=== PATIENT | male | born 1960 | race Caucasian/White ===

== ENCOUNTER 2020-10-13 09:19 | Inpatient (IN) ==
--- NOTE | 2020-09-09 14:06 | PAT Medication Instructions ---
Medication Instructions Date of Service September 09, 2020 Home Medications Medication Instructions Recorded sodium,potassium,mag sulfates 17.5 177 ml PO DAILY #354 ml 01/09/19 gram-3.13 gram-1.6 gram oral soln aspirin 81 mg PO HS fenofibrate nanocrystallized 145 mg PO QPM multivitamin 1 tab PO QAM omeprazole 40 mg PO DAILY PRN rosuvastatin 20 mg PO QPM sodium,potassium,mag sulfates 17.5 gram-3.13 gram-1.6 gram oral soln 177 ml PO DAILY ibuprofen 400 mg PO Q6H PRN venlafaxine [Effexor] 75 mg PO QAM ASK your surgeon for instructions ibuprofen 400 mg PO Q6H PRN STOP taking 48 hours before surgery fenofibrate nanocrystallized 145 mg PO QPM DO NOT take the morning of surgery multivitamin 1 tab PO QAM sodium,potassium,mag sulfates 17.5 gram-3.13 gram-1.6 gram oral soln 177 ml PO DAILY Take morning of surgery With a small sip of water, OTHERWISE NOTHING TO EAT OR DRINK AFTER MIDNIGHT: omeprazole 40 mg PO DAILY PRN (if needed) venlafaxine [Effexor] 75 mg PO QAM Take evening before surgery aspirin 81 mg PO HS omeprazole 40 mg PO DAILY PRN (if needed) rosuvastatin 20 mg PO QPM Other Notes If you have any questions please call us at [phone] or [phone] or [phone] or [phone]
--- NOTE | 2020-09-13 11:50 | Anesthesiology Consultation ---
Date of Service September 13, 2020 Assessment & Plan (1) Encounter for pre-operative examination: - Thrombocytopenia: appears chronic with baseline 80s-low 100's per chart urby delgado. Surgeon's office made aware. Awaiting response from PCP regarding thrombocytopenia. - COVID screening: Per assessment on 09/13: Travel screen negative, no known COVID-19 positive contacts or current COVID-19 related symptoms. Patient fully vaccinated. Surgeon arranging preop COVID testing (scheduled 10/07; [facility]). Awaiting results. - ETOH use: 6-9 beers after finishing working (late afternoon/night), rare morning ETOH use* Chart Review Chart Review: Patient seen in Pre Admission Testing Teaching & Discussion Pre-Anesthesia Teaching/Discussion Notes: Instructed NPO after midnight before surgery,except medications with 15 cc of water. Medication instructions provided according to the PAT guidelines. History Surgery Operation Date: 10/13/20 09:00 Proposed Procedures p Right Total Knee Arthroplasty - Hermes Jacques MD Height/Weight Height: 5 ft 6 in Weight: 90.4 kg Allergies Allergy/AdvReac Type Severity Reaction Status Date / Time No Known Allergies Allergy Verified 09/09/20 13:23 Medications Home Medications Medication Instructions Recorded Confirmed Last Taken aspirin 81 mg PO HS 01/09/19 09/09/20 01/09/19 fenofibrate nanocrystallized 145 mg PO QPM 01/09/19 09/09/20 01/09/19 multivitamin 1 tab PO QAM 01/09/19 09/09/20 12/26/18 omeprazole 40 mg PO DAILY PRN 01/09/19 09/09/20 01/09/19 rosuvastatin 20 mg PO QPM 01/09/19 09/09/20 01/09/19 sodium,potassium,mag sulfates 17.5 177 ml PO DAILY #354 ml 01/09/19 09/09/20 01/12/19 gram-3.13 gram-1.6 gram oral soln ibuprofen 400 mg PO Q6H PRN 09/09/20 09/09/20 Unknown venlafaxine [Effexor] 75 mg PO QAM 09/09/20 09/09/20 Unknown Past Medical History Medical History (Updated 09/13/20 @ 14:58 by Bridgette Lara) Chronic back pain GERD (gastroesophageal reflux disease) controlled [place] (hard of hearing) Hyperlipidemia Obesity Thrombocytopenia Chronic, baseline platelets 80s-low 100s Exercise / Class Metabolic Activity II 4-5 Yardwork/Stairs/Walk up hill (one flight of stairs (no chest pain/no sob)) Past Family History Family History Father Family history of diabetes mellitus Mother Family history of diabetes mellitus Past Surgical History Surgical History History of arthroscopy of both shoulders History of colonoscopy Colonoscopy (01/12/19): MAC sedation at [facility] Past Anesthesia History No Hx of Anesthesia Complications and No Family Hx of Anesthesia Complications History of PONV No Hx of PONV and No Hx of Motion Sickness Social History Smoking Status: Former smoker tobacco type: cigarettes Do You Dip or Chew Tobacco: No Smoking End Date: Quit in ' Hx Alcohol Use: Yes Alcohol type: beer alcohol intake frequency: 3 or more drinks per day (6-9 beers after finishing working (late afternoon/night), rare morning ETOH use) Hx Substance Use: No substance use type: does not use Review of Systems Patient denies chest pain, shortness of breath, dyspnea on exertion, fever, chills, cough, wheezing, palpitations. Physical Exam Vital Signs VITALS BP 132/80 P 88 TEMP 98.3 SP02 96%RA RESP 16 PHYSICAL Full cervical extension range of motion. Full TMJ range of motion. TMD 3 finger breaths Mallampati Score 2 Dentition: intact Lungs: clear throughout to auscultation Cardiac: regular rate and rhythm, no murmurs noted Spine: normal Carotid arteries: negative bruit Extremities: no edema Testing Laboratory Results 09/13/20 12:09 09/13/20 12:09 PT 11.5 Seconds (9.0-12.0) 09/13/20 12:09 INR 1.1 (0.9-1.1) 09/13/20 12:09 APTT 26.8 Seconds (21.0-31.0) 09/13/20 12:09 Urine Color Yellow 09/13/20 Unknown Urine Appearance Clear (Clear) 09/13/20 Unknown Urine pH 7.0 (4.5-7.5) 09/13/20 Unknown Ur Specific [place] 1.034 (1.000-1.030) H 09/13/20 Unknown Urine Protein Negative (Negative) 09/13/20 Unknown Urine Glucose (UA) 3+ (Negative) H 09/13/20 Unknown Urine Ketones Negative (Negative) 09/13/20 Unknown Urine Nitrite Negative (Negative) 09/13/20 Unknown Ur Leukocyte Esterase Negative (Negative) 09/13/20 Unknown Blood Type O Positive 09/13/20 12:09 Antibody Screen NEGATIVE 09/13/20 12:09 Low WBC, thrombocytopenia > preop testing to be forwarded to PCP* Electrocardiogram Date: 09/13/20 NSR at 72bpm. Normal ECG. unconfirmed report. Chest X-Ray Date: 09/13/20 Findings: + NAD
--- NOTE | 2020-09-13 13:00 | XRay Report ---
XR chest Pre-admission PA/Lat HISTORY: 60 years-old Male pat chronic degenerative joint disease COMPARISON: None TECHNIQUE: PA and lateral views of the chest FINDINGS: Cardiomediastinal and hilar silhouettes are within normal limits. No pneumothorax, pleural effusion, airspace consolidation or overt pulmonary edema. Bones of the chest appear grossly intact. IMPRESSION: No acute process. ACT 112: Negative or not required by law. The above report was generated using voice recognition software. It may contain grammatical, syntax o r spelling errors. Electronically signed by: Quinton Holland M.D. 09/13/2020 12:59 PM
[2020-09-13 13:56] LABS: Hematocrit (blood only) 44.6 % (42-52); Hemoglobin 15.7 g/dL (14.0-18.0); Mean Corpuscular Hemoglobin 34.2 pg (25-34); Mean Corpuscular Hgb Conc 35.2 g/dL (32-36); Mean Corpuscular Volume 97.2 fL (80-100); Mean Platelet Volume 11.8 fL (7.4-10.4); Platelet Count 77 K/uL (130-400); RDW Coefficient of Variation 12.6 % (11.5-14.5); RDW Standard Deviation 45.2 fL (36.4-46.3); Red Blood Count 4.59 M/uL (4.7-6.1); White Blood Count 3.59 K/uL (4.8-10.8)
[2020-09-13 13:58] LABS: INR 1.1 (0.9-1.1); Partial Thromboplastin Time 26.8 Seconds (21.0-31.0); Prothrombin Time 11.5 Seconds (9.0-12.0)
[2020-09-13 14:11] LABS: Eosinophils # (auto) 0.04 K/uL (0-0.5); Eosinophils % (auto) 1.1 %; Lymphocytes # (auto) 0.97 K/uL (1.2-3.4); Monocytes # (auto) 0.39 K/uL (0.11-0.59); Monocytes % (auto) 10.9 %; Neutrophils # (auto) 2.19 K/uL (1.4-6.5); Platelet Estimate Decreased (Normal)
[2020-09-13 14:18] LABS: Appearance Urine Clear (Clear); Bilirubin Urine Negative (Negative); Blood Urine Negative (Negative); Color Urine Yellow; Glucose Urine UA 3+ (Negative); Ketones Urine Negative (Negative); Leukocyte Esterase Urine Negative (Negative); Nitrite Urine Negative (Negative); Protein Urine Negative (Negative); Specific Gravity Urine 1.034 (1.000-1.030); Urobilinogen Urine Negative (Negative)
[2020-09-13 15:00] LABS: Albumin Level 3.9 gm/dl (3.4-5.0); BUN Creatinine Ratio 16.4 (10-20); Calcium 10.1 mg/dl (8.5-10.1); Creatinine Clr Calc Pharmacy 102.1 ml/min; Est GFR (Non-African American) 96.6; Potassium 4.3 mmol/L (3.5-5.1)
--- NOTE | 2020-09-14 06:41 | Electrocardiogram Report ---
Test Reason : Blood Pressure : / mmHG Vent. Rate : 072 BPM Atrial Rate : 072 BPM P-R Int : 150 ms QRS Dur : 098 ms QT Int : 436 ms P-R-T Axes : 071 052 049 degrees QTc Int : 477 ms Normal sinus rhythm Normal ECG No previous ECGs available Confirmed by Simon Capps ([id number]) on 09/14/2020 6:41:11 AM Referred By: Hermes Jacques Confirmed By:Simon Capps
[2020-09-14 07:05] LABS: Estimated Average Glucose 180 mg/dl; Hemoglobin A1C 7.9 % (4.5-5.6)
--- NOTE | 2020-10-11 21:44 | History & Physical Report ---
Date of Service October 11, 2020 Assessment & Plan (1) Primary osteoarthritis of right knee: Treatment options discussed with patient. He has failed conservative measures as above and would like to proceed with surgical intervention. Risks, benefits and alternatives to surgery including but not limited to infection, DVT, pain, stiffness, need for revision surgery, damage to blood vessels, damage to nerves, PE, , were discussed with the patient and they wish to proceed. Plan for right total knee arthroplasty at [facility] on 10/13/[address] Jacques. Will plan on aspirin 81mg BID for DVT prophylaxis, as well as HHPT post discharge. All questions answered. F/u post operatively. History of Present Illness Chief Complaint: right knee pain Primary Care Provider: Farshad Murray 60 year old male with PMHx significant for high cholesterol, GERD, anxiety, thrombocytopenia, and daily alcohol use, who presents with worsening right knee pain. He is unable to carry out his normal work activities or daily activities due to pain in knee. He has failed conservative measures including anti- inflammatories, injections, bracing. He would like to proceed with surgical intervention. Patient denies headaches, sweats, fevers, chills, double vision, blurred vision, cough, sore throat, dysphagia, chest pain, sob, wheezing, n/v/d/c, numbness, tingling, fatigue, urinary symptoms, mood disorders. ROS positive for right knee pain and stiffness. Allergies Allergy/AdvReac Type Severity Reaction Status Date / Time No Known Allergies Allergy Verified 09/09/20 13:23 Home Medications Medication Instructions Recorded Confirmed Type aspirin 81 mg PO HS 01/09/19 09/09/20 History fenofibrate nanocrystallized 145 mg PO QPM 01/09/19 09/09/20 History multivitamin 1 tab PO QAM 01/09/19 09/09/20 History omeprazole 40 mg PO DAILY PRN 01/09/19 09/09/20 History rosuvastatin 20 mg PO QPM 01/09/19 09/09/20 History sodium,potassium,mag sulfates 17.5 177 ml PO DAILY #354 ml 01/09/19 09/09/20 Rx gram-3.13 gram-1.6 gram oral soln ibuprofen 400 mg PO Q6H PRN 09/09/20 09/09/20 History venlafaxine [Effexor] 75 mg PO QAM 09/09/20 09/09/20 History metformin 500 mg PO BID 10/05/20 10/05/20 History Past Med/Surg History Medical History (Updated 10/11/20 @ 21:35 by Evangelist Tan) Chronic back pain GERD (gastroesophageal reflux disease) controlled [place] (hard of hearing) Hyperlipidemia Obesity Thrombocytopenia Chronic, baseline platelets 80s-low 100s Surgical History History of arthroscopy of both shoulders History of colonoscopy Colonoscopy (01/12/19): MAC sedation at [facility] Family History Father Family history of diabetes mellitus Mother Family history of diabetes mellitus Social History Smoking Status: Former smoker Second Hand Exposure: Yes (FATHER SMOKED); Hx Alcohol Use: Yes Alcohol type: beer Hx Substance Use: No Preferred Language: Ethiopian Communication Ability: Effective Developer Prover Upholstering Required: No Beliefs That Will Affect Care: None Current Living Situation: Spouse Feels Safe at Home: Yes Assistive Devices: None Review of Systems All systems reviewed & are unremarkable except as noted in HPI & below Physical Exam Constitutional: well developed and well nourished; no acute distress Eyes: PERRL, conjunctivae normal, anicteric sclerae ENMT: external ear and nose normal, oropharynx normal Neck: trachea midline, no thyromegaly Respiratory: normal respiratory effort, lungs clear to auscultation Cardiovascular: RRR, no murmur, no edema Musculoskeletal: Right knee: Mild to moderate effusion. Tenderness lateral joint line, lateral femoral condyle, medial joint line. Mild crepitation. Positive Franci's. Stable to valgus and varus stress. ROM 0-115 degrees. Skin: no rashes, warm and dry Neurologic: patellar DTR's 2+ bilat, sensation intact Psychiatric: A+Ox3, euthymic affect Results & Data ([facility]) Laboratory Results Lab Results 09/13/20 09/13/20 09/13/20 Range/Units 12:09 12:09 12:09 WBC 3.59 L (4.8-10.8) K/uL RBC 4.59 L (4.7-6.1) M/uL Hgb 15.7 (14.0-18.0) g/dL Hct 44.6 (42-52) % MCV 97.2 (80-100) fL MCH 34.2 H (25-34) pg MCHC 35.2 (32-36) g/dL RDW Std Deviation 45.2 (36.4-46.3) fL RDW Coeff of Cheryle 12.6 (11.5-14.5) % Plt Count 77 L (130-400) K/uL MPV 11.8 H (7.4-10.4) fL Immature Gran % (Auto) 0.0 % Neut % (Auto) 61.0 % Lymph % (Auto) 27.0 % [place] % (Auto) 10.9 % Eos % (Auto) 1.1 % Baso % (Auto) 0.0 % Neut # (Auto) 2.19 (1.4-6.5) K/uL Lymph # (Auto) 0.97 L (1.2-3.4) K/uL Henderson # (Auto) 0.39 (0.11-0.59) K/uL Eos # (Auto) 0.04 (0-0.5) K/uL Baso # (Auto) 0.00 (0-0.2) K/uL Immature Gran # (Auto) 0.00 (0.00-0.02) K/uL Platelet Estimate Decreased L (Normal) PT 11.5 (9.0-12.0) Seconds INR 1.1 (0.9-1.1) APTT 26.8 (21.0-31.0) Seconds PTT Ratio 1.0 Sodium (136-145) mmol/L Potassium (3.5-5.1) mmol/L Chloride (98-107) mmol/L Carbon Dioxide (21-32) mmol/L Anion Gap (3-11) BUN (7-18) mg/dl Creatinine (0.6-1.4) mg/dl Est Cr Clr Drug Dosing ml/min Est GFR ( Amer) Est GFR (Non-Af Amer) BUN/Creatinine Ratio (10-20) Glucose (70-99) mg/dl Estimat Average Glucose mg/dl Hemoglobin A1c (4.5-5.6) % Calcium (8.5-10.1) mg/dl Albumin (3.4-5.0) gm/dl Urine Color Urine Appearance (Clear) Urine pH (4.5-7.5) Ur Specific [place] (1.000-1.030) Urine Protein (Negative) Urine Glucose (UA) (Negative) Urine Ketones (Negative) Urine Blood (Negative) Urine Nitrite (Negative) Urine Bilirubin (Negative) Urine Urobilinogen (Negative) Ur Leukocyte Esterase (Negative) Blood Type O Positive Antibody Screen NEGATIVE 09/13/20 09/13/20 09/13/20 Range/Units 12:09 12:09 Unknown WBC (4.8-10.8) K/uL RBC (4.7-6.1) M/uL Hgb (14.0-18.0) g/dL Hct (42-52) % MCV (80-100) fL MCH (25-34) pg MCHC (32-36) g/dL RDW Std Deviation (36.4-46.3) fL RDW Coeff of Cheryle (11.5-14.5) % Plt Count (130-400) K/uL MPV (7.4-10.4) fL Immature Gran % (Auto) % Neut % (Auto) % Lymph % (Auto) % [place] % (Auto) % Eos % (Auto) % Baso % (Auto) % Neut # (Auto) (1.4-6.5) K/uL Lymph # (Auto) (1.2-3.4) K/uL [place] # (Auto) (0.11-0.59) K/uL Eos # (Auto) (0-0.5) K/uL Baso # (Auto) (0-0.2) K/uL Immature Gran # (Auto) (0.00-0.02) K/uL Platelet Estimate (Normal) PT (9.0-12.0) Seconds INR (0.9-1.1) APTT (21.0-31.0) Seconds PTT Ratio Sodium 137 (136-145) mmol/L Potassium 4.3 (3.5-5.1) mmol/L Chloride 106 (98-107) mmol/L Carbon Dioxide 27 (21-32) mmol/L Anion Gap 4.0 (3-11) BUN 13 (7-18) mg/dl Creatinine 0.81 (0.6-1.4) mg/dl Est Cr Clr Drug Dosing 102.1 ml/min Est GFR ( Amer) 112.0 Est GFR (Non-Af Amer) 96.6 BUN/Creatinine Ratio 16.4 (10-20) Glucose 287 H (70-99) mg/dl Estimat Average Glucose 180 mg/dl Hemoglobin A1c 7.9 H (4.5-5.6) % Calcium 10.1 (8.5-10.1) mg/dl Albumin 3.9 (3.4-5.0) gm/dl Urine Color Yellow Urine Appearance Clear (Clear) Urine pH 7.0 (4.5-7.5) Ur Specific [place] 1.034 H (1.000-1.030) Urine Protein Negative (Negative) Urine Glucose (UA) 3+ H (Negative) Urine Ketones Negative (Negative) Urine Blood Negative (Negative) Urine Nitrite Negative (Negative) Urine Bilirubin Negative (Negative) Urine Urobilinogen Negative (Negative) Ur Leukocyte Esterase Negative (Negative) Blood Type Antibody Screen Diagnostic Findings Right knee radiographs: Tricompartmental arthritic change with periarticular osteophyte formation. Moderate joint space narrowing medial compartment not quite bone on bone. Cystic changes lateral femoral condyle vs area of AVN. MRI of right knee obtained demonstrating large osteochondral defect, flexion surface of lateral femoral condyle..
[~2020-10-13 09:19] MED LIST: ACETAMINOPHEN 500 MG TAB PO SCH; BUPIVACAINE 0.25% 30 ML VIAL ONE; BUPIVACAINE 0.5 % 5 MG/1 ML PF 10ML VIAL ONE; CeleBREX 200 MG CAP PO SCH; DEXAMETHASONE SOD INJ 4 MG/ML VIAL ONE; EPINEPHrine INJ 1 MG/ML AMP ONE; FAMOTIDINE 20 MG TAB PO SCH; GABAPENTIN 600 MG DOSE PO SCH; LR 500ML BOLUS, THEN 15ML/HR IV SCH; METOCLOPRAMIDE HCL 10 MG TABLET PO SCH; ROPIVACAINE 0.5% HCL/PF 150 MG, BUPIVACAINE 0.75% MPF 20 ML, EPINEPHrine 30MG/30ML (OR ... INSTIL SCH; TRANEXAMIC ACID 1,000 MG **IV Intra-op IV SCH; TRANEXAMIC ACID 1,000 MG **IV Pre-op IV SCH; ceFAZolin 2000MG 2,000 MG/15 ML SYR IV SCH; dexAMETHasone 4 MG TAB PO SCH
[2020-10-13 10:25] LABS: Hematocrit (blood only) 42.5 % (42-52); Mean Corpuscular Hgb Conc 35.3 g/dL (32-36); Mean Corpuscular Volume 96.4 fL (80-100); Mean Platelet Volume 12.1 fL (7.4-10.4); Platelet Count 70 K/uL (130-400); RDW Coefficient of Variation 12.8 % (11.5-14.5); RDW Standard Deviation 45.1 fL (36.4-46.3); Red Blood Count 4.41 M/uL (4.7-6.1); White Blood Count 2.83 K/uL (4.8-10.8)
[2020-10-13 10:43] LABS: Basophils # (auto) 0.01 K/uL (0-0.2); Basophils % (auto) 0.4 %; Eosinophils # (auto) 0.03 K/uL (0-0.5); Eosinophils % (auto) 1.1 %; Lymphocytes # (auto) 1.02 K/uL (1.2-3.4); Monocytes # (auto) 0.32 K/uL (0.11-0.59); Monocytes % (auto) 11.3 %; Neutrophils # (auto) 1.45 K/uL (1.4-6.5); Neutrophils % (auto) 51.2 %
[2020-10-13 10:43] LABS: BUN Creatinine Ratio 12.6 (10-20); Calcium 8.4 mg/dl (8.5-10.1); Creatinine Clr Calc Pharmacy 128.1 ml/min; Est GFR (African American) 123.3 ml/min; Est GFR (Non-African American) 106.4 ml/min; Potassium 3.6 mmol/L (3.5-5.1)
--- NOTE | 2020-10-13 10:45 | History & Physical Bridge Note ---
Date of Service October 13, 2020 History & Physical Bridge Note I have examined the patient, reviewed the History & Physical and in the interval since the performance of the History & Physical I have noted the following changes of clinical significance: no changes noted
[2020-10-13] MEDS ORDERED: ORTHO JOINT ANESTHETIC ONE (11:08)
[2020-10-13] MEDS ORDERED: PHENYLEPHRINE 100MCG/ML 5ML SYR ONE (12:08)
[2020-10-13] MEDS ORDERED: fentaNYL citrate 100 MCG/2 ML VIAL ONE (12:08)
[2020-10-13] MEDS ORDERED: PROPOFOL IV EMULSION 10 MG/ML 20 ML VIAL IV ONE ×5 (12:08→14:48)
[2020-10-13] MEDS ORDERED: LIDOCAINE 2% 2 ML VIAL/AMP(20MG/ML) INFIL ONE (12:08)
[2020-10-13] MEDS ORDERED: MIDAZOLAM HCL 1 MG/ML 2ML VIAL ONE (12:08)
[2020-10-13] MEDS ORDERED: ePHEDrine sulfate 50 MG/ML SYR ONE (12:08)
[2020-10-13] MEDS ORDERED: ONDANSETRON INJ 2 MG/ML 2 ML VIAL ONE (12:53)
[2020-10-13] MEDS ORDERED: ONDANSETRON INJ 2 MG/ML 2 ML VIAL IV PRN ×2 (12:59→16:30)
[2020-10-13] MEDS ORDERED: ePHEDrine sulfate 50 MG/ML AMP IV PRN (12:59)
[2020-10-13] MEDS ORDERED: ATROPINE SULFATE 0.1 MG/ML 10ML SYR IV PRN (12:59)
[2020-10-13] MEDS ORDERED: fentaNYL citrate 100 MCG/2 ML VIAL IV PRN (12:59)
--- NOTE | 2020-10-13 14:41 | Post Operative Brief Note ---
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, Loose Body Right Knee Post-Op Diagnosis: Unilateral Primary Osteoarthritis Avascular Necrosis Lateral Femoral Condyle, Loose Body Right Knee I identified the patient and participated in the time-out.: Yes Procedure Operation Date: 10/13/20 12:00 Actual Procedures p Right Total Knee Arthroplasty, Removal Loose Body(Right), lateral release, superficial wound VAC- Hermes Jacques MD Surgeon Hermes Jacques MD Auxiliary Operator Dean HORVATH Estimated Blood Loss 5 Findings Consistent with Post-Op Diagnosis Specimens Bone cuts and loose body AVN lateral femoral condyle Drains Hemovac Drain Anesthesia Type MAC Spinal Regional Complications none Disposition Accompanied Patient To Recovery: No Disposition: Recovery Room Overlapping Procedure I was present for: the critical portions of procedure. Back up surgeon: was not required during procedure.
--- NOTE | 2020-10-13 15:40 | XRay Report ---
XR knee RT 1 or 2V routine CLINICAL HISTORY: Postoperative examination COMPARISON: None. DISCUSSION: There are postsurgical changes of a total right knee arthroplasty and patellar resurfacin g. The femoral tibial components appear well seated. There are overlying skin marcelo and surgical dr abbeyns. There is gas present within the soft tissues consistent with recent surgery. IMPRESSION: Postsurgical changes of a total right knee arthroplasty. ACT 112: Negative or not required by law. Electronically signed by: Ji Veronica M.D. 10/13/2020 3:39 PM
[2020-10-13] MEDS ORDERED: oxyCODONE HCL IR 5 MG TAB (IMMEDIATE RELEASE) PO PRN (16:30)
[2020-10-13] MEDS ORDERED: HYDROmorphone INJ 0.5 MG/0.5 ML SYR IV PRN (16:30)
[2020-10-13] MEDS ORDERED: MAGNESIUM HYDROXIDE SUSP 30 ML UDC PO PRN (16:30)
[2020-10-13] MEDS ORDERED: bisacodyL 10 MG SUPP PR PRN (16:30)
[2020-10-13] MEDS ORDERED: NALOXONE HCL 0.4 MG/1 ML VIAL/CARP IV PRN (16:30)
--- NOTE | 2020-10-13 16:30 | Anesthesiology Progress Note ---
Date of Service October 13, 2020 Anesthesia Post Procedure Vital Signs Vital Signs: Temp Pulse Pulse Resp BP BP Pulse Ox 10/13/20 15:50 87 18 108/68 94 10/13/20 15:35 36.9 C 89 18 109/69 93 10/13/20 15:25 89 18 105/73 92 10/13/20 15:15 90 18 112/68 92 10/13/20 15:07 36.2 C L 92 H 14 97/63 L 96 10/13/20 10:45 37.1 C 71 18 136/70 96 10/13/20 09:45 36.6 C 71 20 151/98 H 100 Transfer of Care Handoff Completed per policy Notes Mental Status: alert / awake / arousable Patient Amnestic to Procedure: Yes Nausea / Vomiting: adequately controlled Pain: adequately controlled Airway Patency, RR, SpO2: stable & adequate BP & HR: stable & adequate Hydration State: stable & adequate Neuraxial Anesthesia: was administered and sensory block is resolving Anesthetic Complications: no major complications apparent and Pt Satisfied with anesthetic care
[2020-10-13] MEDS ORDERED: LORazepam 0.5 MG/1 ML VIAL IV PRN (16:39)
--- NOTE | 2020-10-13 16:58 | Operative Report ---
Post Operative Report Pre & Post Diagnosis Operation Date: 10/13/20 12:00 Pre-Op Diagnosis: Unilateral Primary Osteoarthritis Avascular Necrosis Lateral Femoral Condyle, Loose Body Right Knee Post-Op Diagnosis: Unilateral Primary Osteoarthritis Avascular Necrosis Lateral Femoral Condyle, Loose Body Right Knee I identified the patient and participated in the time-out.: Yes Procedure Operation Date: 10/13/20 12:00 Actual Procedures p Right Total Knee Arthroplasty, Removal Loose Body(Right), lateral release, superficial wound VAC- Hermes Jacques MD Surgeon Hermes Jacques MD Stand Grinder Daen HORVATH Estimated Blood Loss 5 Findings Consistent with Post-Op Diagnosis Specimens Avascular fragment 3.5 x 2.75 cm from lateral femoral condyle. Bone cuts . Drains 2 Hemovac Anesthesia Type MAC Spinal Regional Complications none Disposition Accompanied Patient To Recovery: No Disposition: Recovery Room Indications 60-year-old male with right knee pain related to osteoarthritis and subsequent avascular necrosis of the lateral femoral condyle and large osteochondral fragment broke off his femoral condyle and there is flattening of the lateral fe moral condyle and bone loss. Patient has patellofemoral and medial compartment OA in addition. Description of Procedure Patient was taken to the operating room placed supine on the operating table and anesthetized under MAC spinal regional anesthesia. Exam under anesthesia demonstrated moderately large effusion 15 degree flexion contracture with f lexion to 130 degrees. No instability.. A pneumatic tourniquet was placed about the thigh of the right lower extremity. The right lower extremity was prepped and draped in usual fashion. The leg was elevated exsanguinated with an Esmarch bandage and the pneumatic was raised to 325 mm mercury. An anterior incision was made across the right knee. The skin was incised longitudinally down into the prepatellar bursa which had thickened scarred bands prepatellar bursa tissue that was resected. Subcutaneous flaps were elevated and an incision was made through the medial retinaculum extending up into the mid third of the quadriceps tendon and extended down to the medial tibial tubercle. Intra-articular findings demonstrated flattening of the posterior extension and flexion surface of the lateral femoral condyle consistent with AVN with missing osteochondral fragment. The osteochondral fragment was recovered which was a 3.5 x 2.75 oval osteochondral piece of bone. There is grade III chondromalacia of the medial compartment there is grade 3 close to grade 4 trochlear chondromalacia as well as some patellar osteophytes and a chondral lesion of the medial facet of the patella.. The knee was exposed by excising the infrapatellar fat pad, excising the meniscal remnants and anterior cruciate ligament. Any inflamed synovial tissue was resected. The fat pad over the anterior femur was resected for placement of the component in that area. The lateral synovial bands were release. The femur was exposed. The custom femoral cutting block was pinned in position. The distal femoral cutting block was applied. The distal femoral cut was made with the oscillating saw. The size 10, 4-in-1 cutting block was placed. The anterior and posterior chamfer cuts were made. The chamfer cut level for the most part were deeper than the bone loss from the AVN except for 10 x 8 mm area which was curetted out to remove all diseased bone to get down to solid bone for placement of cement into that area deep to the implant. The area is not thought to be large enough to compromise the stability of the implant. Was noted in general that the bone quality was somewhat soft and less typical density then average person at his age. The knee was extended and a subperiosteal peel lateral release was performed around the patella. The patella width was measured and width was reproduced using freehand cut technique. The 35 millimeter symmetrical patella was used. 3 drill holes are made for the pegs. The tibia was exposed. A custom tibial cutting block was positioned and drill holes were made for the cutting guide. Cutting guide was placed and the proximal cut was made with the oscillating saw. All osteophytes were resected. The lamina powder and primer canning leader was used to assess ligamentous balance and the ligaments were balanced in extension and flexion. The tibia was reexposed and measured for a size F tibial component. This was externally rotated in line with the tibial tubercle and the fixation pins were drilled. The proximal tibia was fashioned with the drill and punch. The size 11 CR femoral trial was inserted. The trial MC inserts were used. The 11 mm insert gave balanced ligaments through full range of motion. The patella tracked with some lateral tracking so I went ahead and did a formal lateral release and patella tracks centrally. the trials were removed. The orthomix anesthetic cocktail was injected per protocol. The knee was then copiously irrigated with pulsatile lavage antibiotic solution with bacitracin. The final components were cemented with Simplex cement. The final components were Earnestine [employer] persona right 10 CR femoral component, F tibial component, left millimeter MC polyethylene insert, 35 symmetrical patella.. After the cement cured with the knee in full extension the Betadine soak was used per protocol. The knee joint was copiously irrigated with antibiotic solution with bacitracin. 2 drains were brought out laterally and connected to a Hemovac. The quadriceps tendon and medial retinaculum were closed with interrupted [id number] #1 Vicryl sutures. The knee was taken through a full range of motion and repair was secu re. The subcutaneous tissues were closed with 2-0 Vicryl sutures and skin was closed with marcelo. A superficial wound VAC was applied and the patient tolerated the procedure well. Dean HORVATH my physician assistant dean of students, assisted in soft tissue retraction instrument management leg positioning the closure and application of superficial wound VAC and will participate in the postoperative care of the patient. I attest to the content of the Intraoperative Record and any orders documented therein. Any exceptions are noted below.
[2020-10-13] MEDS ORDERED: PHARMACY GLYCEMIC MGMT CONSULT PRN (17:24)
[2020-10-13] MEDS ORDERED: GLUCOSE 40% GEL 15 GM TUBE PO PRN (17:30)
[2020-10-13] MEDS ORDERED: GLUCOSE 10 TABS/TUBE PO PRN (17:30)
[2020-10-13] MEDS ORDERED: GLUCAGON FOR INJ 1 MG VIAL SQ PRN (17:30)
[2020-10-13] MEDS ORDERED: DEXTROSE 50% 50 ML SYRINGE IV PRN (17:30)
[2020-10-13] MEDS ORDERED: CARBOHYDRATES FOR HYPOGLYCEMIA PO PRN (17:30)
[2020-10-13] MEDS ORDERED: LANTUS PER UNIT CHARGE SQ SCH (18:00)
[2020-10-13] MEDS: SODIUM CHLORIDE 0.9% 1000ML 1,000 ML IV SCH (18:22)
[2020-10-13] MEDS: INSULIN ASPART 100 UNITS/ML 3 ML PEN SC SCH ×2 (18:24→21:06)
[2020-10-13] MEDS: DOCUSATE SODIUM 100 MG CAP PO SCH (20:14)
[2020-10-13] MEDS: ASPIRIN 81 MG ECTAB PO SCH (20:15)
[2020-10-13] MEDS: metFORMIN HCL 500 MG TAB PO SCH (20:15)
[2020-10-13] MEDS ORDERED: SENNA 8.6 MG TAB PO SCH (21:00)
[2020-10-13] MEDS ORDERED: FENOFIBRATE NANOCRYSTALLIZED 145 MG TABLET PO SCH (21:00)
[2020-10-13] MEDS ORDERED: ROSUVASTATIN CALCIUM 20 MG TAB PO SCH (21:00)
[2020-10-13] MEDS: ACETAMINOPHEN 500 MG TAB PO SCH (21:06)
[2020-10-13] MEDS: ceFAZolin 2000MG 2,000 MG/15 ML SYR IV SCH (21:06)
[2020-10-14] MEDS: SODIUM CHLORIDE 0.9% 1000ML 1,000 ML IV SCH (03:30)
[2020-10-14] MEDS: ACETAMINOPHEN 500 MG TAB PO SCH (05:31)
[2020-10-14] MEDS: ceFAZolin 2000MG 2,000 MG/15 ML SYR IV SCH (05:32)
[2020-10-14 06:17] LABS: Hematocrit (blood only) 36.7 % (42-52); Hemoglobin 12.9 g/dL (14.0-18.0); Mean Corpuscular Hemoglobin 33.3 pg (25-34); Mean Corpuscular Hgb Conc 35.1 g/dL (32-36); Mean Corpuscular Volume 94.8 fL (80-100); RDW Coefficient of Variation 13.1 % (11.5-14.5); RDW Standard Deviation 45.1 fL (36.4-46.3); Red Blood Count 3.87 M/uL (4.7-6.1)
[2020-10-14 06:42] LABS: Mean Platelet Volume 11.5 fL (7.4-10.4); Platelet Count 85 K/uL (130-400)
[2020-10-14 06:44] LABS: BUN Creatinine Ratio 12.2 (10-20); Calcium 8.5 mg/dl (8.5-10.1); Creatinine Clr Calc Pharmacy 97.6 ml/min; Est GFR (African American) 110.3 ml/min; Est GFR (Non-African American) 95.2 ml/min; Potassium 3.7 mmol/L (3.5-5.1)
--- NOTE | 2020-10-14 07:48 | Orthopedic Progress Note ---
Date of Service October 14, 2020 Assessment & Plan (1) Primary osteoarthritis of right knee: POD#1 Right TKA -PT/OT -Pain management -DVT prophylaxis-SCDs, TEDs, ASA 81mg BID -Am labs-hemoglobin at 12.9 from 15 acute blood loss anemia due to surgical loss and dilutional effect. Platelets to 85. -D/C planning-home with plans on OPPT. D/c today if does well with PT. Admission and Anticipated Discharge Date Admission Date: October 13, 2020 Subjective POD#1 right TKA. Doing well this morning, pain controlled. No current complaints. Denies chest pain, sob, dizziness, n/v/d, headache, fever, chills. Review of Systems Review of Systems: All systems reviewed & are unremarkable except as noted in HPI & below Physical Exam Physical Exam: Right knee dressing is c/d/i. Toes mobile with good dorsiflexion. No calf tenderness. Distally n/v status and sensation intact. Constitutional: well developed and well nourished; no acute distress Results & Data ([facility]) Vital Signs (Past 12 Hours) Vital Signs Temp Pulse Pulse Resp BP Pulse Ox 10/14/20 07:31 37.3 C 81 16 108/55 L 91 10/14/20 03:36 36.6 C 90 18 121/73 92 10/13/20 22:53 36.9 C 105 H 18 132/76 94 Laboratory Results Lab Results 09/13/20 09/13/20 09/13/20 Range/Units 12:09 12:09 12:09 WBC 3.59 L (4.8-10.8) K/uL RBC 4.59 L (4.7-6.1) M/uL Hgb 15.7 (14.0-18.0) g/dL Hct 44.6 (42-52) % MCV 97.2 (80-100) fL MCH 34.2 H (25-34) pg MCHC 35.2 (32-36) g/dL RDW Std Deviation 45.2 (36.4-46.3) fL RDW Coeff of Cheryle 12.6 (11.5-14.5) % Plt Count 77 L (130-400) K/uL MPV 11.8 H (7.4-10.4) fL Immature Gran % (Auto) 0.0 % Neut % (Auto) 61.0 % Lymph % (Auto) 27.0 % Barren % (Auto) 10.9 % Eos % (Auto) 1.1 % Baso % (Auto) 0.0 % Neut # (Auto) 2.19 (1.4-6.5) K/uL Lymph # (Auto) 0.97 L (1.2-3.4) K/uL Barren # (Auto) 0.39 (0.11-0.59) K/uL Eos # (Auto) 0.04 (0-0.5) K/uL Baso # (Auto) 0.00 (0-0.2) K/uL Immature Gran # (Auto) 0.00 (0.00-0.02) K/uL Platelet Estimate Decreased L (Normal) PT 11.5 (9.0-12.0) Seconds INR 1.1 (0.9-1.1) APTT 26.8 (21.0-31.0) Seconds PTT Ratio 1.0 Sodium (136-145) mmol/L Potassium (3.5-5.1) mmol/L Chloride (98-107) mmol/L Carbon Dioxide (21-32) mmol/L Anion Gap (3-11) BUN (7-18) mg/dl Creatinine (0.6-1.4) mg/dl Est Cr Clr Drug Dosing ml/min Est GFR ( Amer) Est GFR (Non-Af Amer) BUN/Creatinine Ratio (10-20) Glucose (70-99) mg/dl POC Glucose (70-99) mg/dl Estimat Average Glucose mg/dl Hemoglobin A1c (4.5-5.6) % Calcium (8.5-10.1) mg/dl Albumin (3.4-5.0) gm/dl Urine Color Urine Appearance (Clear) Urine pH (4.5-7.5) Ur Specific [place] (1.000-1.030) Urine Protein (Negative) Urine Glucose (UA) (Negative) Urine Ketones (Negative) Urine Blood (Negative) Urine Nitrite (Negative) Urine Bilirubin (Negative) Urine Urobilinogen (Negative) Ur Leukocyte Esterase (Negative) COVID-19 Eval Order SARS-CoV-2, RNA, NAAT (NEGATIVE) Blood Type O Positive Antibody Screen NEGATIVE 09/13/20 09/13/2021 Range/Units 12:09 12:09 Unknown WBC (4.8-10.8) K/uL RBC (4.7-6.1) M/uL Hgb (14.0-18.0) g/dL Hct (42-52) % MCV (80-100) fL MCH (25-34) pg MCHC (32-36) g/dL RDW Std Deviation (36.4-46.3) fL RDW Coeff of Cheryle (11.5-14.5) % Plt Count (130-400) K/uL MPV (7.4-10.4) fL Immature Gran % (Auto) % Neut % (Auto) % Lymph % (Auto) % Barren % (Auto) % Eos % (Auto) % Baso % (Auto) % Neut # (Auto) (1.4-6.5) K/uL Lymph # (Auto) (1.2-3.4) K/uL Barren # (Auto) (0.11-0.59) K/uL Eos # (Auto) (0-0.5) K/uL Baso # (Auto) (0-0.2) K/uL Immature Gran # (Auto) (0.00-0.02) K/uL Platelet Estimate (Normal) PT (9.0-12.0) Seconds INR (0.9-1.1) APTT (21.0-31.0) Seconds PTT Ratio Sodium 137 (136-145) mmol/L Potassium 4.3 (3.5-5.1) mmol/L Chloride 106 (98-107) mmol/L Carbon Dioxide 27 (21-32) mmol/L Anion Gap 4.0 (3-11) BUN 13 (7-18) mg/dl Creatinine 0.81 (0.6-1.4) mg/dl Est Cr Clr Drug Dosing 102.1 ml/min Est GFR ( Amer) 112.0 Est GFR (Non-Af Amer) 96.6 BUN/Creatinine Ratio 16.4 (10-20) Glucose 287 H (70-99) mg/dl POC Glucose (70-99) mg/dl Estimat Average Glucose 180 mg/dl Hemoglobin A1c 7.9 H (4.5-5.6) % Calcium 10.1 (8.5-10.1) mg/dl Albumin 3.9 (3.4-5.0) gm/dl Urine Color Yellow Urine Appearance Clear (Clear) Urine pH 7.0 (4.5-7.5) Ur Specific [place] 1.034 H (1.000-1.030) Urine Protein Negative (Negative) Urine Glucose (UA) 3+ H (Negative) Urine Ketones Negative (Negative) Urine Blood Negative (Negative) Urine Nitrite Negative (Negative) Urine Bilirubin Negative (Negative) Urine Urobilinogen Negative (Negative) Ur Leukocyte Esterase Negative (Negative) COVID-19 Eval Order SARS-CoV-2, RNA, NAAT (NEGATIVE) Blood Type Antibody Screen 10/13/20 10/13/20 10/13/20 Range/Units 09:36 09:36 09:50 WBC 2.83 L (4.8-10.8) K/uL RBC 4.41 L (4.7-6.1) M/uL Hgb 15.0 (14.0-18.0) g/dL Hct 42.5 (42-52) % MCV 96.4 (80-100) fL MCH 34.0 (25-34) pg MCHC 35.3 (32-36) g/dL RDW Std Deviation 45.1 (36.4-46.3) fL RDW Coeff of Cheryle 12.8 (11.5-14.5) % Plt Count 70 L (130-400) K/uL MPV 12.1 H (7.4-10.4) fL Immature Gran % (Auto) 0.0 % Neut % (Auto) 51.2 % Lymph % (Auto) 36.0 % Barren % (Auto) 11.3 % Eos % (Auto) 1.1 % Baso % (Auto) 0.4 % Neut # (Auto) 1.45 (1.4-6.5) K/uL Lymph # (Auto) 1.02 L (1.2-3.4) K/uL Barren # (Auto) 0.32 (0.11-0.59) K/uL Eos # (Auto) 0.03 (0-0.5) K/uL Baso # (Auto) 0.01 (0-0.2) K/uL Immature Gran # (Auto) 0.00 (0.00-0.02) K/uL Platelet Estimate (Normal) PT (9.0-12.0) Seconds INR (0.9-1.1) APTT (21.0-31.0) Seconds PTT Ratio Sodium (136-145) mmol/L Potassium (3.5-5.1) mmol/L Chloride (98-107) mmol/L Carbon Dioxide (21-32) mmol/L Anion Gap (3-11) BUN (7-18) mg/dl Creatinine (0.6-1.4) mg/dl Est Cr Clr Drug Dosing ml/min Est GFR ( Amer) Est GFR (Non-Af Amer) BUN/Creatinine Ratio (10-20) Glucose (70-99) mg/dl POC Glucose (70-99) mg/dl Estimat Average Glucose mg/dl Hemoglobin A1c (4.5-5.6) % Calcium (8.5-10.1) mg/dl Albumin (3.4-5.0) gm/dl Urine Color Urine Appearance (Clear) Urine pH (4.5-7.5) Ur Specific [place] (1.000-1.030) Urine Protein (Negative) Urine Glucose (UA) (Negative) Urine Ketones (Negative) Urine Blood (Negative) Urine Nitrite (Negative) Urine Bilirubin (Negative) Urine Urobilinogen (Negative) Ur Leukocyte Esterase (Negative) COVID-19 Eval Order Covid19 [facility]Now [facility] SARS-CoV-2, RNA, NAAT NEGATIVE (NEGATIVE) Blood Type Antibody Screen 10/13/20 10/13/20 10/13/20 Range/Units 09:58 10:08 17:03 WBC (4.8-10.8) K/uL RBC (4.7-6.1) M/uL Hgb (14.0-18.0) g/dL Hct (42-52) % MCV (80-100) fL MCH (25-34) pg MCHC (32-36) g/dL RDW Std Deviation (36.4-46.3) fL RDW Coeff of Cheryle (11.5-14.5) % Plt Count (130-400) K/uL MPV (7.4-10.4) fL Immature Gran % (Auto) % Neut % (Auto) % Lymph % (Auto) % Barren % (Auto) % Eos % (Auto) % Baso % (Auto) % Neut # (Auto) (1.4-6.5) K/uL Lymph # (Auto) (1.2-3.4) K/uL Barren # (Auto) (0.11-0.59) K/uL Eos # (Auto) (0-0.5) K/uL Baso # (Auto) (0-0.2) K/uL Immature Gran # (Auto) (0.00-0.02) K/uL Platelet Estimate (Normal) PT (9.0-12.0) Seconds INR (0.9-1.1) APTT (21.0-31.0) Seconds PTT Ratio Sodium 139 (136-145) mmol/L Potassium 3.6 (3.5-5.1) mmol/L Chloride 109 H (98-107) mmol/L Carbon Dioxide 24 (21-32) mmol/L Anion Gap 6.0 (3-11) BUN 8 (7-18) mg/dl Creatinine 0.64 (0.6-1.4) mg/dl Est Cr Clr Drug Dosing 128.1 ml/min Est GFR ( Amer) 123.3 Est GFR (Non-Af Amer) 106.4 BUN/Creatinine Ratio 12.6 (10-20) Glucose 194 H (70-99) mg/dl POC Glucose 189 H 241 H (70-99) mg/dl Estimat Average Glucose mg/dl Hemoglobin A1c (4.5-5.6) % Calcium 8.4 L (8.5-10.1) mg/dl Albumin (3.4-5.0) gm/dl Urine Color Urine Appearance (Clear) Urine pH (4.5-7.5) Ur Specific [place] (1.000-1.030) Urine Protein (Negative) Urine Glucose (UA) (Negative) Urine Ketones (Negative) Urine Blood (Negative) Urine Nitrite (Negative) Urine Bilirubin (Negative) Urine Urobilinogen (Negative) Ur Leukocyte Esterase (Negative) COVID-19 Eval Order SARS-CoV-2, RNA, NAAT (NEGATIVE) Blood Type Antibody Screen 10/13/20 10/14/20 10/14/20 Range/Units 20:49 05:41 05:41 WBC 5.40 (4.8-10.8) K/uL RBC 3.87 L (4.7-6.1) M/uL Hgb 12.9 L (14.0-18.0) g/dL Hct 36.7 L (42-52) % MCV 94.8 (80-100) fL MCH 33.3 (25-34) pg MCHC 35.1 (32-36) g/dL RDW Std Deviation 45.1 (36.4-46.3) fL RDW Coeff of Cheryle 13.1 (11.5-14.5) % Plt Count 85 L (130-400) K/uL MPV 11.5 H (7.4-10.4) fL Immature Gran % (Auto) % Neut % (Auto) % Lymph % (Auto) % Barren % (Auto) % Eos % (Auto) % Baso % (Auto) % Neut # (Auto) (1.4-6.5) K/uL Lymph # (Auto) (1.2-3.4) K/uL Barren # (Auto) (0.11-0.59) K/uL Eos # (Auto) (0-0.5) K/uL Baso # (Auto) (0-0.2) K/uL Immature Gran # (Auto) (0.00-0.02) K/uL Platelet Estimate (Normal) PT (9.0-12.0) Seconds INR (0.9-1.1) APTT (21.0-31.0) Seconds PTT Ratio Sodium 141 (136-145) mmol/L Potassium 3.7 (3.5-5.1) mmol/L Chloride 109 H (98-107) mmol/L Carbon Dioxide 24 (21-32) mmol/L Anion Gap 8.0 (3-11) BUN 10 (7-18) mg/dl Creatinine 0.84 (0.6-1.4) mg/dl Est Cr Clr Drug Dosing 97.6 ml/min Est GFR ( Amer) 110.3 Est GFR (Non-Af Amer) 95.2 BUN/Creatinine Ratio 12.2 (10-20) Glucose 225 H (70-99) mg/dl POC Glucose 283 H (70-99) mg/dl Estimat Average Glucose mg/dl Hemoglobin A1c (4.5-5.6) % Calcium 8.5 (8.5-10.1) mg/dl Albumin (3.4-5.0) gm/dl Urine Color Urine Appearance (Clear) Urine pH (4.5-7.5) Ur Specific [place] (1.000-1.030) Urine Protein (Negative) Urine Glucose (UA) (Negative) Urine Ketones (Negative) Urine Blood (Negative) Urine Nitrite (Negative) Urine Bilirubin (Negative) Urine Urobilinogen (Negative) Ur Leukocyte Esterase (Negative) COVID-19 Eval Order SARS-CoV-2, RNA, NAAT (NEGATIVE) Blood Type Antibody Screen
[2020-10-14] MEDS: metFORMIN HCL 500 MG TAB PO SCH (08:38)
[2020-10-14] MEDS: ASPIRIN 81 MG ECTAB PO SCH (08:39)
[2020-10-14] MEDS: DOCUSATE SODIUM 100 MG CAP PO SCH (08:40)
[2020-10-14] MEDS: INSULIN ASPART 100 UNITS/ML 3 ML PEN SC SCH (08:42)
--- NOTE | 2020-10-14 08:57 | Pharmacy Report ---
Pharmacy Glycemic Short Note 2 - Date of Service October 14, 2020 - Glycemic Short BSG Results (Last 24 hours): 10/13/20 10/13/20 10/13/20 09:58 10:08 17:03 Glucose 194 H POC Glucose 189 H 241 H 10/13/20 10/14/20 10/14/20 20:49 05:41 08:11 Glucose 225 H POC Glucose 283 H 228 H OUTPATIENT ANTIDIABETIC REGIMEN: * Metformin 500 mg PO BIDM * HbA1c: 7.9% (09/13/20) ASSESSMENT: * PM is a 60 year old male POD #1 s/p right total knee arthroplasty * Received intraoperative dexamethasone, covered with Lantus 30 units SC x 1 * BSGs elevated postoperatively, 241, 283, and 228 mg/dL * Will continue patient's home metformin, tighten Novolog, and continue scheduled Novolog * Likely discharge today PLAN FOR INPATIENT GLYCEMIC CONTROL: * Metformin 500 mg PO BIDM * Basal insulin * Lantus 15 units SQ BID * Bolus insulin * NovoLog per scale ACHS or Q6hrs while NPO * Goal Range: Low 110 mg/dL - High 140 mg/dL * Correction Factor: 20 mg/dL/unit * Nutritional / Prandial insulin per carb ratio of 1 unit per 5 grams CHO consumed PLAN FOR DISCHARGE: * HbA1c of 7.9% is above goal of less than 7% for this patient * Suggest titrating metformin dosing upwards as recommended. Dosage increases should be made in increments of 500 mg weekly, up to 2,000 mg/day PO, given in divided doses. Consider XR formulation if concerned for issues with tolerability.
[2020-10-14] MEDS ORDERED: VENLAFAXINE HCL XR 75 MG CAPXR PO SCH (09:00)
[2020-10-14] MEDS ORDERED: PANTOprazole 40 MG TAB PO SCH (09:00)
[2020-10-14] MEDS ORDERED: INSULIN GLARGINE SOLOSTAR 100 UNITS/ML 3 ML PEN SC SCH (09:00)
[2020-10-14] MEDS ORDERED: MULTIVITAMIN TAB PO SCH (09:00)
--- NOTE | 2020-10-17 10:31 | Discharge Summary ---
Date of Service October 17, 2020 Admission HPI Per Admitting Provider 60 year old male with PMHx significant for high cholesterol, GERD, anxiety, thrombocytopenia, and daily alcohol use, who presents with worsening right knee pain. He is unable to carry out his normal work activities or daily activities due to pain in knee. He has failed conservative measures including anti- inflammatories, injections, bracing. He would like to proceed with surgical intervention. Patient denies headaches, sweats, fevers, chills, double vision, blurred vision, cough, sore throat, dysphagia, chest pain, sob, wheezing, n/v/d/c, numbness, tingling, fatigue, urinary symptoms, mood disorders. ROS positive for right knee pain and stiffness. Admission Exam Per Admitting Provider Physical Exam Constitutional: well developed and well nourished; no acute distress Eyes: PERRL, conjunctivae normal, anicteric sclerae ENMT: external ear and nose normal, oropharynx normal Neck: trachea midline, no thyromegaly Respiratory: normal respiratory effort, lungs clear to auscultation Cardiovascular: RRR, no murmur, no edema Musculoskeletal: Right knee: Mild to moderate effusion. Tenderness lateral joint line, lateral femoral condyle, medial joint line. Mild crepitation. Positive Franci's. Stable to valgus and varus stress. ROM 0-115 degrees. Skin: no rashes, warm and dry Neurologic: patellar DTR's 2+ bilat, sensation intact Psychiatric: A+Ox3, euthymic affect Principal Diagnosis Right knee osteoarthritis Discharge Data Allergies Allergy/AdvReac Type Severity Reaction Status Date / Time No Known Allergies Allergy Verified 10/13/20 10:04 Consultations 10/10/20 12:25 Consult Hospitalist Routine Procedures Performed Operation Date: 10/13/20 12:00 Actual Procedures p Right Total Knee Arthroplasty, Removal Loose Body(Right) - Hermes Jacques MD Ordered Studies 10/13/20 05:00 US - OR guided needle placemen Routine Hospital Course (1) Primary osteoarthritis of right knee: Date of Service October 14, 2020 Assessment & Plan (1) Primary osteoarthritis of right knee: POD#1 Right TKA -PT/OT -Pain management -DVT prophylaxis-SCDs, TEDs, ASA 81mg BID -Am labs-hemoglobin at 12.9 from 15 acute blood loss anemia due to surgical loss and dilutional effect. Platelets to 85. -D/C planning-home with plans on OPPT. D/c today if does well with PT. Patient progressed well with physical therapy and was felt to be stable for discharge, On 10/14/2020 Admission and Anticipated Discharge Date Admission Date: October 13, 2020 Subjective POD#1 right TKA. Doing well this morning, pain controlled. No current complaints. Denies chest pain, sob, dizziness, n/v/d, headache, fever, chills. Review of Systems Review of Systems: All systems reviewed & are unremarkable except as noted in HPI & below Physical Exam Physical Exam: Right knee dressing is c/d/i. Toes mobile with good dorsiflexion. No calf tenderness. Distally n/v status and sensation intact. Constitutional: well developed and well nourished; no acute distress Results & Data ([facility]) Vital Signs (Past 12 Hours) Vital Signs Temp Pulse Pulse Resp BP Pulse Ox 10/14/20 07:31 37.3 C 81 16 108/55 L 91 10/14/20 03:36 36.6 C 90 18 121/73 92 10/13/20 22:53 36.9 C 105 H 18 132/76 94 Laboratory Results Lab Results 09/13/20 09/13/20 09/13/20 Range/Units 12:09 12:09 12:09 WBC 3.59 L (4.8-10.8) K/uL RBC 4.59 L (4.7-6.1) M/uL Hgb 15.7 (14.0-18.0) g/dL Hct 44.6 (42-52) % Total Time Total Time Spent Total Time Spent (In Minutes): 5 Discharge Plan Discharge Items Patient Disposition: Home - Self-Care Reason For Visit: Unilarteral Primary Osteoarthritis Knee Right Discharge Diagnosis: Right knee osteoarthritis Activity: Per Instructions section Non-emergency contact: Surgeon Call non-emergency contact if: you have any medication questions, your pain is not controlled, your pain is worsening, your pain is concerning for you, you have a fever, your temperature is above 101, your wound has increased redness and your wound has increased drainage Follow-up/Referrals: Farshad Murray, PAJoselinC [Primary Care Provider] - Diet: Regular Addtl Attending Provider Instructions: ACTIVITY RECOMMENDATIONS: SELF CARE INSTRUCTIONS AFTER TOTAL KNEE REPLACEMENT A. You may need to continue a physical therapy program after discharge from the hospital. There are several options available to you. Your doctor will assist you in selecting the best one for you. 1. An out-patient facility 2 to 3 times a week for therapy or home therapy. 2. Continue working on all exercises taught to you in the hospital. Your goals should be to increase bending of your knee to 90 degrees and beyond and to fully straighten your knee. B. You may progress at your own pace from walking with a walker or crutches to a cane; then to no assistive devices. C. Make walking a part of your daily routine. Be up as much as comfortable with rest periods throughout the day. Rest with leg elevation is very important. Use the ice wrap frequently for the first 3-4 weeks. D. There are no restrictions on activities. You may ride in a car, shop, participate in fraternity adviser and all social activities. E. Wear the long elastic stockings (DC hose) 20 hours a day for 2 weeks after surgery. They can be removed several times a day for laundering and for a bath. F. You may shower, no tub baths until cleared by your doctor. SPECIAL CARE INSTRUCTIONS: VERY IMPORTANT TO READ AND REVIEW A. There are a few signs you need to watch for after you are home. Call [facility] if you notice any of the followin. Increased severe knee pain. Some pain is expected especially when you exercise. 2. Increased swelling in your leg or knee; pain or swelling of the calf muscle in either lower leg. 3. Any fluid drainage from the incision. 4. Shortness of breath or chest pain. B. Please call [facility] at if you have any concerns or questions about your operation or recovery. The doctor or his nurse will return your call promptly. C. You must take antibiotics before dental work, bladder, bowel or other surgery. Your doctor will provide you with a permanent care to carry describing this precaution. IMPORTANT: * REMEMBER TO TAKE ASPIRIN, 81 MG, TWICE DAILY FOR 4 WEEKS UNLESS OTHERWISE DIRECTED. THIS IS YOUR BLOOD THINNER. * HIGH RISK PATIENTS MAY BE PRESCRIBED A STRONGER BLOOD THINNER. THIS WILL BE PROVIDED AT DISCHARGE. * CALL IF INCREASED PAIN, REDNESS, DRAINAGE OR FEVER GREATER THAT 101. * WEAR DC HOSE 20 HOURS PER DAY FOR 2 WEEKS. This is a large suction dressing covering your incision. This will help pull any excess drainage from the wound and allow your incision to heal properly. You may shower with this if you can keep the unit outside of the shower. If any bleeding or leakage is noted please call your doctor's office. This will remain on your incision for 7 days and then should be removed. This can be done yourself or by the home nursing staff if applicable. The entire unit is disposable once removed. Once removed, keep incision clean and dry. If redness or drainage is noted, please call your surgeon. IF INCISION IS LEAKING THROUGH DRESSING, CALL THE OFFICE . FOLLOW UP VISIT: If appointment is not already scheduled: Please call [facility] to make a follow-up appointment for 2 weeks after your surgery at . Stand-Alone Forms: [facility], Opioid Pain Management, Smoking Cessation Medications and DC Order Prescriptions: New acetaminophen 500 mg Tablet 1,000 mg PO Q8 Qty: 60 RF: 0 aspirin 81 mg Tablet,Delayed Release (Dr/Ec) 81 mg PO BID Qty: 60 RF: 0 oxycodone 5 mg Tablet 5 - 10 mg PO .Q4h-6h MDD 6 PRN (Reason: pain) Qty: 30 RF: 0 cefadroxil 500 mg capsule 500 mg PO BID Qty: 14 RF: 0 Continued Suprep Bowel Prep Kit 17.5-3.13-1.6 gram recon soln 177 ml PO DAILY Qty: 354 RF: 0 multivitamin Tablet 1 tab PO QAM RF: 0 omeprazole 40 mg Capsule,Delayed Release(Dr/Ec) 40 mg PO DAILY PRN (Reason: Acid Reflux) RF: 0 rosuvastatin 20 mg Tablet 20 mg PO QPM RF: 0 fenofibrate nanocrystallized 145 mg Tablet 145 mg PO QPM RF: 0 venlafaxine 75 mg Tablet 75 mg PO QAM RF: 0 metformin 500 mg Tablet 500 mg PO BID RF: 0 Discontinued aspirin 81 mg Tablet,Delayed Release (Dr/Ec) 81 mg PO HS RF: 0 ibuprofen 200 mg Tablet 400 mg PO Q6H PRN (Reason: Pain) RF: 0 Discharge Orders: Discharge Order (Routine); Ordered 10/14/20 Ordered By: Evangelist Mclaughlin/Other Patient Handouts: DVT Post Op Prevention Admission Data Admit Date/Time: 10/13/20 15:23 Attending Provider: Hermes Jacques Admit Provider: Hermes Jacques Primary Care Provider: Farshad Murray Other Providers: Ho Nolasco Peter W Other Interventions: Discharge Summary Assessment (RN) Last Done: 10/14/20 10:41
== END 2020-10-14 13:53 | disposition home or self-care (01) | DRG 470 ==
LOC: 3E 09:19 → ASU 09:19 → OBSVTOIN 15:23